=== PATIENT | female | born 1980 | race Two or more races ===

== ENCOUNTER 2023-12-17 13:58 | Inpatient (IN) | payer OTHER ==
[~2023-12-17] VITALS: Ht 154.9 cm; Wt 68.5 kg
[2023-12-30] MEDS ORDERED: CEFTRIAXONE SODIUM 2,000 MG VIAL ONE (06:22)
[2023-12-30] MEDS ORDERED: METRONIDAZOLE/SODIUM CHLORIDE 500 MG/100 ML PIGGYBACK IV ONE ×2 (06:22→08:15)
[2023-12-30] MEDS ORDERED: VISTASEAL DUAL APPICATOR 1 EACH APPL TOP ONE ×2 (07:05→08:45)
[2023-12-30] MEDS ORDERED: LIDOCAINE HCL 1%/Epi 20ML VIAL IJ ONE ×2 (07:05→08:15)
[2023-12-30] MEDS ORDERED: BUPIVACAINE HCL/PF 0.5% 30ML ML ONE (07:05)
[2023-12-30] MEDS ORDERED: THROMBIN,HU/FIBRINOGEN/CALCIUM 10 ML SYRINGE TOP ONE ×2 (07:06→08:45)
[2023-12-30] MEDS ORDERED: POVIDONE-IODINE 118 ML BOTT TOP ONE ×2 (07:59→08:15)
[2023-12-30] MEDS ORDERED: CEFTRIAXONE SODIUM 2,000 MG VIAL IV ONE (08:15)
[2023-12-30] MEDS ORDERED: BUPIVACAINE HCL/PF 0.5% 30ML ML IJ ONE (08:15)
[2023-12-30] MEDS ORDERED: CELECOXIB 200 MG CAPSULE PO SCH (10:33)
[2023-12-30] MEDS ORDERED: ACETAMINOPHEN 325 MG TABLET PO SCH (12:00)
[2023-12-30] MEDS ORDERED: RINGERS SOLUTION,LACTATED 1,000 ML IV SCH (12:00)
[2023-12-30] MEDS ORDERED: ONDANSETRON HCL 2 MG/ML VIAL IV SCH (12:00)
[2023-12-30] MEDS ORDERED: CEFOXITIN SODIUM 2,000 MG VIAL IV SCH (12:00)
[2023-12-30] MEDS ORDERED: MORPHINE SULFATE 4 MG/ML CARTRIDGE IV SCH (12:00)
[2023-12-30] MEDS ORDERED: GABAPENTIN 100 MG CAPSULE PO SCH (13:00)
[2023-12-30 13:27] LABS: HEMATOCRIT 35.2 % (36.0-45.00); HEMOGLOBIN 11.4 g/dL (12.0-15.00); MEAN CELL VOLUME 93.2 fL (80.00-100.00); MEAN CORPUSCULAR HEMOGLOBIN 30.3 pg (27.00-32.0); MEAN CORPUSCULAR HGB CONC 32.5 g/dl (32.0-36.0); PLATELET COUNT 326 K/uL (150-450); RED BLOOD COUNT 3.77 M/uL (4.00-6.00); RED CELL DISTRIBUTION WIDTH 15.5 % (11.5-14.5)
[2023-12-30 14:04] LABS: CALCIUM 8.6 mg/dL (8.5-10.1); CREATININE SERUM 0.67 mg/dL (0.55-1.02); GFR 96.06; POTASSIUM 4.31 mEq/L (3.5-5.1)
[2023-12-31 02:18] LABS: HEMATOCRIT 33.2 % (36.0-45.00); HEMOGLOBIN 11.2 g/dL (12.0-15.00); MEAN CELL VOLUME 92.7 fL (80.00-100.00); MEAN CORPUSCULAR HEMOGLOBIN 31.3 pg (27.00-32.0); MEAN CORPUSCULAR HGB CONC 33.8 g/dl (32.0-36.0); PLATELET COUNT 315 K/uL (150-450); RED BLOOD COUNT 3.58 M/uL (4.00-6.00); RED CELL DISTRIBUTION WIDTH 15.7 % (11.5-14.5)
== END 2023-12-31 10:10 | disposition home or self-care (01) | DRG 743 ==
LOC: O/R 12-30 05:30 → OB/GYN 12-30 07:00
PROVIDERS: ADMIT Obstetrics & Gynecology Gynecology; ATTEND Obstetrics & Gynecology Gynecology
PROC: 0UT74ZZ Resection of Bilateral Fallopian Tubes, Percutaneous Endoscopic Approach (ICD-10-PCS; 2023-12-30)
PROC: 0UT14ZZ Resection of Left Ovary, Percutaneous Endoscopic Approach (ICD-10-PCS; 2023-12-30)
PROC: 0DNW4ZZ Release Peritoneum, Percutaneous Endoscopic Approach (ICD-10-PCS; 2023-12-30)
PROC: 0DNJ4ZZ Release Appendix, Percutaneous Endoscopic Approach (ICD-10-PCS; 2023-12-30)
PROC: 0DNN4ZZ Release Sigmoid Colon, Percutaneous Endoscopic Approach (ICD-10-PCS; 2023-12-30)
PROC: 0DTJ4ZZ Resection of Appendix, Percutaneous Endoscopic Approach (ICD-10-PCS; 2023-12-30)
PROC: 0UT94ZZ Resection of Uterus, Percutaneous Endoscopic Approach (ICD-10-PCS; principal; 2023-12-30 07:00)
DX: D25.1 Intramural leiomyoma of uterus (principal); D25.2 Subserosal leiomyoma of uterus; D25.0 Submucous leiomyoma of uterus; K66.0 Peritoneal adhesions (postprocedural) (postinfection); N80.03 Adenomyosis of the uterus; N72 Inflammatory disease of cervix uteri; Z20.822 Contact with and (suspected) exposure to COVID-19; N94.5 Secondary dysmenorrhea; N92.0 Excessive and frequent menstruation with regular cycle; D50.0 Iron deficiency anemia secondary to blood loss (chronic)